=== PATIENT | female | born 1995 | race Caucasian/White ===

== ENCOUNTER 2018-03-03 12:06 | Outpatient (CLI) | payer OTHER ==
--- NOTE | 2018-03-03 13:23 | CT ---
CT PARANASAL SINUSES WITH AND WITHOUT IV CONTRAST: Date: 03-03-18 History: Chronic sinusitis. Patient complaining of headaches and pressure in head. History of prior s urgery for mass on right, near the orbit and nose. History of right orbital abscess. FINDINGS: There is absence of a portion of the more anterior aspect of the medial meatus, likely related to jordyn or post-surgical changes with widening of the ethmoid infundibulum on the right, again, likely due to prior post-surgical change. There is mild mucosal thickening in the right maxillary antrum. The kar naty of the paranasal sinuses are clear and no air fluid level is seen. No abnormal areas of enhancement are seen after the administration of intravenous contrast. There is no evidence of a fluid collection seen to suggest an abscess. There is a subcentimeter low density focus seen within the lower portion of the right parotid gland, probably related to a small intraparotid lymph node. There is prominence of the adenoids bilaterally. The orbits have a normal and symmetric appearance bilaterally. IMPRESSION: 1. Nonspecific prominence of the adenoids. 2. Mild sinus disease involving the right maxillary antrum. 3. Post-surgical changes related to partial right ethmoidectomy and removal of a portion of the anter ior aspect of the middle meatus. 4. No evidence of a fluid collection seen to suggest an abscess. POS: VETO
== END 2018-03-03 12:07 | disposition home or self-care (01) ==
LOC: CT 12:06
PROVIDERS: ATTEND Otolaryngology Pediatric Otolaryngology
DX: J32.9 Chronic sinusitis, unspecified (principal); J32.0 Chronic maxillary sinusitis; Z98.890 Other specified postprocedural states

== ENCOUNTER 2018-03-31 09:01 | Day surgery (SDC) | payer OTHER ==
[2018-03-30 14:17] VITALS: BMI 42.4
[2018-03-31] MEDS ORDERED: Oxymetazoline HCl 0.05% ( 15 ML ) ONE ×2 (10:20→11:33)
[2018-03-31 10:40] LABS: BHCG - Serum Negative (NEGATIVE); Pregs Control Background? CLEAR/WHITE (CLR/WHITE); Pregs Control Bar Appear? YES (CONTROL BAR)
[2018-03-31] MEDS ORDERED: Lidocaine 1% w/Epinephrine 1:100K 30 ML VIAL ONE (11:32)
[2018-03-31] MEDS ORDERED: Fentanyl 100 MCG/2 ML VIAL ONE ×2 (12:30→14:07)
[2018-03-31] MEDS ORDERED: Midazolam HCl 2 mg/2 ml Vial ONE (12:30)
[2018-03-31] MEDS ORDERED: Promethazine HCl 25 MG/ML VIAL ONE (14:53)
[2018-03-31] MEDS ORDERED: Morphine 4 MG/ML VIAL ONE (14:53)
[2018-03-31] MEDS ORDERED: HYDROcodone/Acetaminophen 5/325 mg Tablet ONE (16:04)
--- NOTE | 2018-04-01 08:49 | OP ---
PREOPERATIVE DIAGNOSES: Facial pain, recurrent sinusitis and postoperative scarring. POSTOPERATIVE DIAGNOSES: Facial pain, recurrent sinusitis and postoperative scarring. PROCEDURES PERFORMED: 1. Bilateral nasal endoscopy with maxillary antrostomy. 2. Bilateral nasal endoscopy with frontal sinusotomy. 3. Bilateral nasal endoscopy with total ethmoidectomy. 4. Bilateral nasal endoscopy with sphenoidotomy. PROCEDURE IN DETAIL: After consent was obtained, the patient was identified, brought to the operatin g room, and placed on the operating room table in the supine position. Consent was obtained, notifyi ng the patient of the possibility of additional infections, bleeding, brain injury, and eye/orbital i njury. The patient was placed on the operating room table, and general endotracheal anesthesia and intravenous access was obtained. The patient was then positioned, prepped and draped for endoscopic sinus surgery. Nasal preparation included trimming nasal vestibular hairs and spraying in topical Af rin. We then placed Afrin topical solution on nasal pledgets and strategically located them intranas ally. The perinasal mucosa was injected with 1% lidocaine with 1:100,000 epinephrine in the submucop erichondrial plane of the septum, lateral nasal wall, and anterior to the uncinate. The patient was then prepped and draped in a sterile fashion and positioned for endoscopic sinus surgery. With the 0-degree endoscope, the patient underwent systematicnasal endoscopy. There were no suspicio us internasal masses or lesions identified. We then focused our attention to the osteomeatal complex region under the middel turbinate. The uncinate was then identified and the extent of the uncinate was appreciated by out-fracturing the uncinate with the ball-tip probe. We then used the sickle blade to disarticulate the uncinate from the lateral nasal wall. This was then removed with straight biting and upbiting punches with the rem aining shrouds of mucosa and bony septum removed with the micro-debrider. The natural os of the maxi llary sinus was then identified and enlarged with the maxillary punches and back biting forceps. The anterior face of the ethmoid bulla was entered and with the micro-debrider, dissection continued posteriorly to the ground lamella. The limits of dissection included the insertion of the middle tur binate, medial orbital wall, and base of skull. We similarly identified the frontal recess and remov ed shrouds of bone and debris in that region to obtain patency into the agger nasi region and frontal recess. We then entered the ground lamella and its anteroinferior aspect and proceeded posteriorly, opening the posterior ethmoid air-cell system. Again, the limits of dissection included the base of skull and medial orbital wall. The anterior face of the sphenoid was identified and entered in its extreme anteroinferior aspect. A sphenoid punch was then used to enlarge the sphenoidotomy and no injury to the optic nerve or recruiting intern al carotid artery occurred. At this point, we then turned our attention to the contralateral side and proceeded with endoscopic s inus surgery. At the completion of the case, Rice keel splints were placed in the ethmoid cavities after the ethmoi dectomy. There were no complications. The patient tolerated the procedure well and was discharged t o the recovery room in stable condition prior to return to the preoperative Day Stay with [facility]. Prescriptions for pain medication and antibiotics were provided. The patient received intramuscular Depo-Medrol during the case. 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
== END 2018-03-31 16:40 | disposition home or self-care (01) ==
LOC: SDC 09:01
PROVIDERS: ATTEND Specialist
PROC: 09TU8ZZ Resection of Right Ethmoid Sinus, Via Natural or Artificial Opening Endoscopic (ICD-10-PCS; principal; 2018-03-31)
PROC: 099W8ZZ Drainage of Right Sphenoid Sinus, Via Natural or Artificial Opening Endoscopic (ICD-10-PCS; principal; 2018-03-31)
PROC: 099R8ZZ Drainage of Left Maxillary Sinus, Via Natural or Artificial Opening Endoscopic (ICD-10-PCS; principal; 2018-03-31)
PROC: 099T8ZZ Drainage of Left Frontal Sinus, Via Natural or Artificial Opening Endoscopic (ICD-10-PCS; principal; 2018-03-31)
PROC: 099S8ZZ Drainage of Right Frontal Sinus, Via Natural or Artificial Opening Endoscopic (ICD-10-PCS; principal; 2018-03-31)
PROC: 099Q8ZZ Drainage of Right Maxillary Sinus, Via Natural or Artificial Opening Endoscopic (ICD-10-PCS; principal; 2018-03-31)
PROC: 099X8ZZ Drainage of Left Sphenoid Sinus, Via Natural or Artificial Opening Endoscopic (ICD-10-PCS; principal; 2018-03-31)
PROC: 09TV8ZZ Resection of Left Ethmoid Sinus, Via Natural or Artificial Opening Endoscopic (ICD-10-PCS; principal; 2018-03-31)
DX: J32.9 Chronic sinusitis, unspecified (principal); J34.3 Hypertrophy of nasal turbinates; M19.90 Unspecified osteoarthritis, unspecified site; Z98.890 Other specified postprocedural states
CPT/HCPCS: 84703; 85014; 96374; J0131; J2001; J2250; J2270; J2550; J3010

== ENCOUNTER 2023-09-10 12:53 | Emergency (ER) | payer OTHER ==
[2023-09-10 14:00] LABS: SARS-CoV-2 NAA Rapid Test Not Detected (NotDetected)
[2023-09-10 14:10] LABS: #Eosinphils 0.2 thou/uL (0.0-0.7); #Monocytes 0.7 thou/uL (0.11-0.59); #Neutrophils 5.3 thou/uL (1.40-6.50); %Basophils 0.5 % (0.0-1.0); %Eosinophils 2.5 % (0.0-10.0); %Lymphocytes 21.6 % (21.0-51.0); %Monocytes 8.6 % (0.0-10.0); %Neutrophils 66.4 % (42.0-75.0); Hematocrit 43.9 % (36.0-47.0); Hemoglobin 14.3 g/dL (12.0-16.0); Mean Corpuscular HGB CONC 32.6 g/dL (32.0-36.0); Mean Corpuscular Hemoglobin 30.4 pg (27.0-31.0); Mean Corpuscular Volume 93.2 fl (78.0-98.0); Mean Platelet Volume 9.8 fL (7.4-10.4); Platelet Count 334 10x3/uL (130-400); RBC Distribution Width 13.1 % (11.5-14.5); Red Blood Cell (RBC) Count 4.71 mill/uL (4.20-5.40); White Blood Cell (WBC) Count 7.9 10x3/uL (4.8-10.8)
[2023-09-10 14:23] LABS: BHCG - Serum Negative (NEGATIVE); Pregs Control Background? CLEAR/WHITE (CLR/WHITE); Pregs Control Bar Appear? YES (CONTROL BAR)
[2023-09-10 14:39] LABS: ALT (SGPT) 48 U/L (8-55); AST (SGOT) 28 U/L (5-34); Alkaline Phosphatase 99 U/L (40-110); Anion Gap 12 mmol/L (10-20); BUN (Urea Nitrogen) 7 mg/dL (7.0-18.7); Bilirubin, Total 0.5 mg/dL (0.2-1.2); Calc. Creatinine Clearance 0 mL/min (70-130); Calcium 8.9 mg/dL (7.8-10.44); Carbon Dioxide 25 mmol/L (22-29); Chloride 102 mmol/L (98-107); Estimated GFR 122; Globulin 3.6 g/dL (2.4-3.5); Glucose 84 mg/dL (70-105); Potassium 3.9 mmol/L (3.5-5.1); Protein, Total 7.6 g/dL (6.0-8.3); Sodium 135 mmol/L (136-145)
[2023-09-10 14:40] LABS: Acetaminophen Less than 10 mcg/mL (10.0-30.0); Alcohol Less than 10.0 mg/dL (Less than 10); Magnesium 1.8 mg/dL (1.6-2.6); Salicylate Less than 8.0 mg/dL (15.0-30.0)
== END 2023-09-10 15:37 | disposition home or self-care (01) ==
LOC: ERS 12:53
DX: R56.9 Unspecified convulsions (principal)
CPT/HCPCS: 36415; 80053; 80307; 83735; 84443; 84703; 85025; 99285